=== PATIENT | female | born 1990 | race Caucasian/White ===

== ENCOUNTER 2018-10-14 13:10 | Inpatient (IN) | payer MEDICAID ==
[2018-10-14] MEDS ORDERED: CARBOPROST 250 MCG INJ IM (17:30)
[2018-10-14] MEDS ORDERED: MISOPROSTOL 200 MCG TAB PR (17:30)
[2018-10-14] MEDS ORDERED: LIDOCAINE 1% (MPF) 30 ML INJ INJ (17:30)
[2018-10-14] MEDS ORDERED: METHYLERGONOVINE 0.2 MG INJ IM (17:30)
[2018-10-14] MEDS ORDERED: OXYTOCIN 30 UNITS/LR 500 ML IV (17:30)
[2018-10-14 17:34] LABS: ADD MAN DIFF? NO
[2018-10-14 17:37] LABS: BASOPHILS % 0.4 % (0.0-2.0); EOSINOPHILS % 0.4 % (0.0-7.0); HEMATOCRIT 38.6 % (37.0-47.0); HEMOGLOBIN 12.3 g/dl (12.0-16.0); LYMPHOCYTES # 1.5 10^3/ul (0.8-2.9); LYMPHOCYTES % 17.8 % (15.0-51.0); MEAN CORPUSCULAR HEMOGLOBIN 27.5 pg (29.0-33.0); MEAN CORPUSCULAR HGB CONC 31.9 g/dl (32.0-37.0); MEAN CORPUSCULAR VOLUME 86.2 fl (82.0-101.0); MEAN PLATELET VOLUME 12.9 fl (7.4-10.4); MONOCYTE # 0.6 10^3/ul (0.3-0.9); MONOCYTES % 6.5 % (0.0-11.0); NEUTROPHIL # 6.2 10^3/ul (1.6-7.5); NEUTROPHILS % 73.2 % (39.0-77.0); PLATELET COUNT 174 10^3/UL (140-415); RED BLOOD COUNT 4.48 10^6/ul (4.20-5.40); RED CELL DISTRIBUTION WIDTH 15.2 % (11.5-14.5)
[2018-10-14 17:37] LABS: WHITE BLOOD COUNT 8.5 10^3/ul (4.8-10.8)
[2018-10-14 18:06] LABS: INR 0.89; PROTIME 12.2 Sec (11.9-14.9)
[2018-10-14 18:07] LABS: PARTIAL THROMBOPLASTIN TIME 30.2 Sec (23.0-35.0)
[2018-10-14] MEDS: MISOPROSTOL 50 MCG CAPSULE VAG (20:03)
[2018-10-14] MEDS: AMPICILLIN 2 GM/NS (PMX) 100 ML IV (20:04)
[2018-10-14] MEDS: MISOPROSTOL 50 MCG CAPSULE PO (20:10)
[2018-10-14] MEDS: LACTATED RINGER'S 1,000 ML IV (21:25)
[2018-10-14 21:29] LABS: HEPATITIS B SURFACE ANTIGEN NEGATIVE (NEGATIVE)
[2018-10-14] MEDS: AL HYDROX/MG HYDROX/SIMETH 30 ML CUP PO (23:07)
[2018-10-15] MEDS: AMPICILLIN 1 GM/NS (PMX) 50 ML IV ×6 (00:08→21:31)
[2018-10-15] MEDS: MISOPROSTOL 50 MCG CAPSULE PO ×4 (00:08→12:08)
[2018-10-15] MEDS: LACTATED RINGER'S 1,000 ML IV ×4 (05:32→18:04)
[2018-10-15] MEDS: BUTORPHANOL 2 MG INJ IV (09:24)
[2018-10-15] MEDS ORDERED: FENTAnyl 2MCG/ML-ROPIV 0.2% 100 ML (13:22)
[2018-10-15] MEDS ORDERED: TRIMETHOBENZAMIDE 100 MG/ML VIAL IM (13:30)
[2018-10-15] MEDS ORDERED: DIPHENHYDRAMINE 50 MG INJ IV (13:30)
[2018-10-15] MEDS ORDERED: ONDANSETRON 4 MG INJ IV (13:30)
[2018-10-15] MEDS ORDERED: NALOXONE (0.4 MG/ML) INJ IV (13:30)
[2018-10-15 15:06] LABS: RAPID PLASMA REAGIN NONREACTIVE (NR)
[2018-10-15] MEDS: OXYTOCIN 30 UNITS/LR 500 ML IV (16:41)
[2018-10-15] MEDS: FENTAnyl 2MCG/ML-ROPIV 0.2% 100 ML BAG EPI (21:09)
[2018-10-16] MEDS: OXYTOCIN 30 UNITS/LR 500 ML IV ×3 (01:24→05:44)
[2018-10-16] MEDS ORDERED: ZOLPIDEM 5 MG TAB PO (01:30)
[2018-10-16] MEDS ORDERED: ACETAMINOPHEN 325 MG TAB PO (01:30)
[2018-10-16] MEDS ORDERED: NACL 0.9% 3 ML SYG IV (01:30)
[2018-10-16] MEDS ORDERED: ONDANSETRON 4 MG INJ IV (01:30)
[2018-10-16] MEDS ORDERED: OXYTOCIN 30 UNITS/LR 500 ML IV (01:30)
[2018-10-16] MEDS ORDERED: DIPHENHYDRAMINE 25 MG CAP PO (01:30)
[2018-10-16] MEDS ORDERED: CARBOPROST 250 MCG INJ IM (01:30)
[2018-10-16] MEDS ORDERED: HYDROCODONE/APAP (5/325) TAB PO (01:30)
[2018-10-16] MEDS ORDERED: MISOPROSTOL 200 MCG TAB PR (01:30)
[2018-10-16 05:12] LABS: HEMATOCRIT 35.3 % (37.0-47.0); HEMOGLOBIN 11.7 g/dl (12.0-16.0)
[2018-10-16] MEDS: IBUPROFEN 600 MG TAB PO ×4 (05:48→23:39)
[2018-10-16] MEDS: WITCH HAZEL/GLYCERIN PAD PR (05:48)
[2018-10-16] MEDS: SENNA/DOCUSATE NA (8.6MG/50MG) TAB PO ×2 (09:02→20:27)
[2018-10-16] MEDS: LACTATED RINGER'S 1,000 ML IV (09:18)
[2018-10-17] MEDS: LANOLIN HPA 1 PKT TOP (05:43)
[2018-10-17] MEDS: IBUPROFEN 600 MG TAB PO ×4 (05:43→23:46)
[2018-10-17] MEDS: BENZOCAINE 20% 56 ML SPRAY TOP ×2 (08:33→21:49)
[2018-10-17] MEDS: SENNA/DOCUSATE NA (8.6MG/50MG) TAB PO ×2 (09:00→21:49)
[2018-10-17] MEDS: WITCH HAZEL/GLYCERIN PAD PR (21:49)
[2018-10-18] MEDS: IBUPROFEN 600 MG TAB PO ×2 (07:15→11:50)
[2018-10-18] MEDS: BENZOCAINE 20% 56 ML SPRAY TOP (09:58)
[2018-10-18] MEDS: SENNA/DOCUSATE NA (8.6MG/50MG) TAB PO (09:58)
== END 2018-10-18 12:52 | disposition home or self-care (01) | DRG 807 ==
LOC: OBT 13:10 → MS1 10-16 03:15 → L-D 13:11 → OBT 16:18 → L-D 16:18
PROVIDERS: Obstetrics & Gynecology
PROC: 3E0P7VZ Introduction of Hormone into Female Reproductive, Via Natural or Artificial Opening (ICD-10-PCS; 2018-10-14)
PROC: 10E0XZZ Delivery of Products of Conception, External Approach (ICD-10-PCS; principal; 2018-10-16)
PROC: 0KQM0ZZ Repair Perineum Muscle, Open Approach (ICD-10-PCS; 2018-10-16)
DX: O48.0 Post-term pregnancy (principal); O70.1 Second degree perineal laceration during delivery; Z3A.40 40 weeks gestation of pregnancy; Z37.0 Single live birth
CPT/HCPCS: 62322; 76815; 76818; 85014; 85018; 85025; 85610; 85730; 86592; 86850; 86900; 86901; 87340; 99464